=== PATIENT | female | born 1960 | race Caucasian/White ===

== ENCOUNTER 2016-12-28 18:08 | Emergency (ER) | payer OTHER ==
--- NOTE | 2016-12-28 18:25 | PROVIDER DOCUMENTATION ---
HPI-General Adult - General Source: patient - History of Present Illness -Gen Adult Nature of Presenting Problems: 56 Y/O F presents to ED with General Adult c/o .Pt states that she was choking earlier and has a hx of acid reflux. 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 Pt states that it has been constantly hurting for months and states that today it has become an emergency. Location of Pain/Injury: reports: neck Quality of Pain: reports: tightness Severity: reports: moderate Onset/Duration: reports: other (several months ago) Timing: reports: still present Associated Symptoms: reports: cough, EENT symptoms <Johana Jones - Last Filed: 12/28/16 18:37> <Tamiko Rosenberg - Last Filed: 12/28/16 19:37> - General Chief Complaint: General Adult Stated Complaint: "DIFFICULITIES SWALLOWING" Time Seen by Provider: 12/28/16 18:25 Allergies/Adverse Reactions: Patient Allergies Allergy/AdvReac Type Severity Reaction Status Date / Time sulfamethoxazole Allergy Severe ANAPHYLAXIS Verified 01/30/16 15:53 [From Bactrim] trimethoprim [From Bactrim] Allergy Severe ANAPHYLAXIS Verified 01/30/16 15:53 oxybutynin chloride * Allergy blisters Verified 01/30/16 15:53 [From Ditropan] in throat Home Medications: Home Medication List Medication Instructions Recorded Confirmed Last Taken Type Amitriptyline HCl 75 mg PO QPM 07/24/13 01/30/16 01/29/16 19:30 History Hydrocodone/APAP 7.5 mg/325 mg 1 each PO BID PRN 01/23/14 01/30/16 01/30/16 06: 00 History [[place]-7.5] Acetaminophen [Arthritis Pain 650 mg PO QPM 05/21/14 01/30/16 Unknown History Relief] Clonazepam [Klonopin] 0.5 mg PO BID PRN 05/21/14 01/30/16 01/30/16 06:00 History Rizatriptan [Maxalt] 10 mg PO PRN PRN 05/21/14 01/30/16 01/29/16 19:30 History Cephalexin [Keflex] 500 mg PO BID #14 capsule 01/30/16 Unknown Rx Cyclobenzaprine [Flexeril] 10 mg PO TID #20 tablet 01/30/16 Unknown Rx Famotidine [Pepcid] 20 mg PO DAILY #20 tablet 01/30/16 Unknown Rx Ketorolac [Toradol] 10 mg PO Q6H PRN PRN #20 tablet 01/30/16 Unknown Rx Review of Systems - Adult - REVIEW OF SYSTEMS - ADULT Constitutional: denies: chills, fever Ears, Nose, Mouth & Throat: reports: throat pain. denies: ear discharge, hearing loss, tinnitus, sinus problem, loose teeth Respiratory: reports: cough. denies: shortness of breath <Johana Jones - Last Filed: 12/28/16 18:37> Past History - Adult - PAST MEDICAL HISTORY-ADULT Review of Records: reports: Old Records Reviewed, Nursing Assessment Review, Medications Reviewed, Social history reviewed & non-contributory. - SOCIAL HISTORY Smoking: quit greater than 1 year Living Situation: family <Johana Jones - Last Filed: 12/28/16 18:37> - PAST MEDICAL HISTORY-ADULT Major Childhood Illnesses: reports: denies history Cardiovascular: reports: denies history Respiratory: reports: denies history Gastrointestinal: reports: GERD Obstetrical/Gynecological: reports: denies history Genitourinary: reports: denies history Musculoskeletal: reports: denies history Neurological: reports: Seizures/Epilepsy, TIA, other (subarachnoid cyst) Endocrine/Immune: reports: hypoglycemia Other Conditions: reports: denies history - PRIOR SURGERIES/PROCEDURES Surgical/Procedure History: reports: hysterectomy, BTL, other - IMMUNIZATION STATUS Childhood Immunizations: See Nurse Assessment Flu Vaccine: See Nurse Assessment - FAMILY HISTORY Family History: reviewed, not pertinent <Tamiko Rosenberg - Last Filed: 12/28/16 19:37> Physical Exam-General - PHYSICAL EXAM-ADULT Initial Vital Signs Reviewed: Yes - CONSTITUTIONAL General Appearance: appears well, alert, no apparent distress - EYES Eyes: PERRL/EOMI, pink conjunctivae - HEAD, EARS, NOSE, MOUTH & THROAT HENMT: normocephalic/atraumatic, moist mucous membranes, normal ENT inspection. negative: pharyngeal erythema, tonsillar exudate (tonsils surgically removed) - NECK Neck: non-tender, full range of motion, supple. negative: lymphadenopathy - RESPIRATORY Respiratory: chest non-tender, lungs clear, normal breath sounds. negative: crackles, rales, rhonchi, stridor, wheezing - CARDIOVASCULAR Cardiovascular: regular rate, rhythm, no edema - GASTROINTESTINAL (ABDOMEN) Abdominal Exam: normal bowel sounds, non tender, soft - MUSCULOSKELETAL Back Exam: normal inspection, no CVA tenderness, no vertebral tenderness Extremity: non-tender, normal inspection - SKIN Integumentary: normal color, normal turgor, warm/dry - NEUROLOGIC Neurologic: grossly normal, no motor/sensory deficits - PSYCHIATRIC Psych/Mental Status: normal thought content, normal thought process <Tamiko Rosenberg - Last Filed: 12/28/16 19:37> Progress - PLAN OF CARE/RESULTS Progress/Plan/Lab Results: Orders Category Date Time Status CHEST-2 VIEWS [RAD] Stat Exams 12/28/16 18:33 Taken Lido/Smith Alk/Al&mg Hydrox [G.i. Cocktail] Med 12/28/16 18:38 Discontinued 30 ml PO NOW ONE Vital Signs Temp Pulse Resp BP Pulse Ox 12/28/16 18:11 98 F 83 18 131/82 99 sulfamethoxazole [From Bactrim] Allergy (Severe, Verified 01/30/16 15:53) ANAPHYLAXIS trimethoprim [From Bactrim] Allergy (Severe, Verified 01/30/16 15:53) ANAPHYLAXIS oxybutynin chloride * [From Ditropan] Allergy (Verified 01/30/16 15:53) blisters in throat Amitriptyline HCl 75 mg PO QPM 07/24/13 Hydrocodone/APAP 7.5 mg/325 mg [[place]-7.5] 1 each PO BID PRN 01/23/14 Acetaminophen [Arthritis Pain Relief] 650 mg PO QPM 05/21/14 Clonazepam [Klonopin] 0.5 mg PO BID PRN 05/21/14 Rizatriptan [Maxalt] 10 mg PO PRN PRN 05/21/14 Cephalexin [Keflex] 500 mg PO BID #14 capsule 01/30/16 Cyclobenzaprine [Flexeril] 10 mg PO TID #20 tablet 01/30/16 Famotidine [Pepcid] 20 mg PO DAILY #20 tablet 01/30/16 Ketorolac [Toradol] 10 mg PO Q6H PRN PRN #20 tablet 01/30/16 - XRAY 1 XRAY Study: Chest Impression: Normal XRAY Interpretation: nad <Tamiko Rosenebrg - Last Filed: 12/28/16 19:37> Departure <Johana Jones - Last Filed: 12/28/16 18:37> - Departure Time of Disposition Order: 19:29 Certified Medical Emergency: Emergent <Tamiko Rosenberg - Last Filed: 12/28/16 19:37> - Departure DIAGNOSIS: Esophageal dysfunction Disposition: HOME 01 Condition: Good Additional Instructions: Follow up with Dr. Banks as needed for possible esophagus stretching. Follow up with Dr. Alvarenga as needed for formal review of labs. ED Follow Up Instructions: You have been treated by a care provider in the Emergency Department. These instructions are being provided to you so you can have an understanding of how to care for yourself upon discharge. Upon discharge from the Emergency Department, you are responsible for making arrangements for follow-up care by a physician of your choice. Take all prescribed medications as directed. Return to the Emergency Department immediately for any new or worsening symptoms. You may call the Physician Referral phone number at [phone] to obtain a list of Physicians who are taking new patients. Referrals: Brando Alvarenga [Primary Care Provider] - Attestation - Physician/ BENJY Attestation Patient care was provided by Advanced Practice Provider:: Yes Advanced Practice Provider:: Tamiko Rosenberg Advanced Practice Provider documentation review:: The Mid-level provider documentation, treatment plan and medical decision making was reviewed by the physician who agrees with all treatment and medical decision making by the MLP. <Tamiko Rosenberg - Last Filed: 12/28/16 19:37> Physician Attestation
[2016-12-28] MEDS ORDERED: G.I. COCKTAIL PO ONE (18:38)
[2016-12-28 19:46] VITALS: BP 107/76
--- NOTE | 2016-12-29 06:15 | Diag Imaging Result Document ---
PROCEDURE NAME: CHEST-2 VIEWS - 12/28/2016 FRONTAL AND LATERAL CHEST, TWO VIEWS: COMPARISON: Compared to 01/23/2014. FINDINGS: The lungs are hyperexpanded. The heart is not enlarged. Pulmonary vessels are small. Minimal atelectasis in the lung bases. No infiltrates. No pleural effusions. No free air beneath the diaphragm. IMPRESSION: 1. Basilar atelectasis. 2. The patient may have mild emphysema.
== END 2016-12-28 19:45 | disposition home or self-care (01) ==
LOC: P.ED 18:08
DX: K22.8 Other specified diseases of esophagus (principal); R07.0 Pain in throat; R05 Cough; K21.9 Gastro-esophageal reflux disease without esophagitis; Z86.73 Personal history of transient ischemic attack (TIA), and cerebral infarction without residual deficits; Z79.899 Other long term (current) drug therapy
CPT/HCPCS: 71020

== ENCOUNTER 2017-04-14 12:53 | Inpatient (IN) ==
[2017-04-14] MEDS ORDERED: MORPHINE IV ONE (13:24)
[2017-04-14] MEDS ORDERED: NS 1,000 ML IV ONE (13:24)
[2017-04-14 13:44] LABS: MANUAL DIFF NEEDED? NO
[2017-04-14 13:46] LABS: BASO% 0.4 % (0.0-0.8); EOS# 0.14 X1000 (0.0-0.7); EOS% 1.2 % (0.0-10.0); HEMATOCRIT 37.5 % (37.0-47.0); IMM GRAN# 0.02 X1000 (0.0-0.04); IMM GRAN% 0.2 % (0.0-0.5); LYMPH# 2.19 X1000 (1.2-3.4); LYMPH% 19.2 % (20.5-51.1); MCH 30.2 PG (27-31); MCHC 34.7 g/dL (33-37); MCV 87.2 FL (81-99); MONO# 1.08 X1000 (0.11-0.59); MONO% 9.5 % (1.7-9.3); NEUT% 69.5 % (42.2-75.2); PLT 253 X1000 (130-400)
[2017-04-14 14:06] LABS: BILIRUBIN URINE NEGATIVE (NEGATIVE); BLOOD URINE 1+ (NEGATIVE); CLARITY CLEAR (CLEAR); COLOR YELLOW; GLUCOSE URINE NEGATIVE (NEGATIVE); LEUKOCYTES URINE 2+ (NEGATIVE); NITRITE URINE NEGATIVE (NEGATIVE); PROTEIN URINE 1+(30 mg/dL) mg/dL (NEGATIVE); SP GRAVITY URINE 1.025; UROBILINOGEN URINE NORMAL
[2017-04-14 14:07] LABS: AGAP 17; ALBUMIN 4.4 g/dL (3.5-5.0); ALKALINE PHOSPHATASE 72 U/L (32-104); AMYLASE 30 U/L (20-200); BUN 17 mg/dL (8-22); CALCIUM 9.7 mg/dL (8.8-10.2); CHLORIDE 99 mmol/L (98-107); COSMO 275; GOT 34 U/L (10-30); GPT 37 U/L (10-36); LIPASE 18 U/L (13-60); POTASSIUM 3.3 mmol/L (3.5-5.1); SODIUM 137 mmol/L (136-145); TCO2 22 mmol/L (25-35); TOTAL PROTEIN 7.8 g/dL (6.3-8.3)
[2017-04-14 14:07] LABS: UR AMPHETAMINES QUAL NONE DETECTED (NONE DETECT); UR BARBITUATES QUAL NONE DETECTED (NONE DETECT); UR BENZODIAZEPIN QUAL NONE DETECTED (NONE DETECT); UR CANNABINOIDS QUAL NONE DETECTED (NONE DETECT); UR COCAINE QUAL NONE DETECTED (NONE DETECT); UR MDMA QUAL NONE DETECTED (NONE DETECT); UR METHADONE QUAL NONE DETECTED (NONE DETECT); UR METHAMPHETAMINE QUAL NONE DETECTED (NONE DETECT); UR OPIATES QUAL NONE DETECTED (NONE DETECT); UR OXYCODONE QUAL NONE DETECTED (NONE DETECT); UR PCP QUAL NONE DETECTED (NONE DETECT); UR TCA QUAL PRESUMPTIVE POSITIVE (NONE DETECT)
[2017-04-14 14:13] LABS: URINE CULTURE PL NEEDED? YES; URINE EPITHELIAL CELLS >10 /HPF (<10); URINE RBC <10 /HPF (<10)
[2017-04-14 14:14] LABS: URINE CRYSTAL NONE SEEN /HPF; URINE SOURCE CLEAN CATCH
[2017-04-14 14:15] LABS: URINE CAST GRANULAR PRESENT /LPF
[2017-04-14] MEDS ORDERED: ROCEPHIN 1 GM/NS 1 GM/50 ML IVPB IV ONE (14:17)
--- NOTE | 2017-04-14 14:20 | Diag Imaging Result Doc PS360 ---
EXAM: CHEST-2 VIEWS HISTORY: Fall with back pain TECHNIQUE: COMPARISON: 12/28/2016 FINDINGS: The lungs are hyper expanded. The heart is not enlarged. The vessels are not distended. There are no infiltrates. No pleural effusions. Minimal scarring in the left base. No contusion. No pneumothorax. No compressed thoracic vertebra. IMPRESSION: No acute injury. Electronically signed by Riaz Reardon 04/14/2017 2:18 PM
--- NOTE | 2017-04-14 14:21 | Diag Imaging Result Doc PS360 ---
HEAD/C-SPINE W/O CONTRAST - 04/14/2017 INDICATION: Fall injury TECHNIQUE: A CT dose reduction protocol was used. COMPARISON: 10/02/2013, 01/31/2016 FINDINGS: Head CT: The ventricles and sulci are normal in size and contour. No intracranial mass or hemorrhage. The skull is intact. The sinuses, mastoids, and middle ears are clear. Cervical spine: Alignment is anatomic. Vertebral body heights are preserved. There is moderately advanced, multilevel disc degeneration with narrowing and osteophytes. This affects all the disc spaces from C4-C7. No fracture or subluxation. Facet joints are fairly well preserved. No central canal or neural foraminal stenosis. The degree of disc degeneration appears identical to the prior exam. IMPRESSION: 1. No acute injury to the head. 2. Multilevel degenerative disc disease in the cervical spine, but no acute injury. Electronically signed by Saroj Arguello 04/14/2017 2:19 PM
--- NOTE | 2017-04-14 14:26 | Diag Imaging Result Doc PS360 ---
RENAL STONE SEARCH - 04/14/2017 INDICATION: Fall with back pain and L flank pain TECHNIQUE: A CT dose reduction protocol was used. COMPARISON: None FINDINGS: There is severe diffuse inflammation about the pancreas. No fluid collections. No free air. No bowel obstruction or inflammation. There is a rather large right renal cyst measuring 5.2 cm. No radiodense renal stones. No hydronephrosis or hydroureter. There are moderate degenerative changes of the spine. No acute or suspicious bony lesion. Urinary bladder and rectum are normal. IMPRESSION: 1. Significant acute pancreatitis. 2. No internal injuries or fractures. Electronically signed by Saroj Arguello 04/14/2017 2:24 PM
[2017-04-14] MEDS ORDERED: TYLENOL PO ONE (14:52)
--- NOTE | 2017-04-14 15:39 | PROVIDER DOCUMENTATION ---
This chart was entered by Mary Olivarez Scribe, acting as scribe for Christine Chadwick MD. HPI-Musculoskeletal Pain/Inj - GENERAL Chief Complaint: Fall Stated Complaint: FALL-3 WKS AGO/FEVER/BODYACHES Time Seen by Provider: 04/14/17 13:07 Source: patient - HX OF PRESENT ILLNESS-MUSKULOSKELTAL Nature of Presenting Problem: Pt is 56 y/o F presents to the ED with back, neck, and bilateral hip pain. Pt states fell down 9 stairs 3 wks ago. Pt states chronic back pain. Pt denies incont of bladder and bowel. Pt states hx of slipped disc in back. Pt states 18 yrs of pain med use. Pt states has not taken some pain meds in 3 wk. Pt states recently having to use a cane for ambulation. Quality of Pain: reports: aching Severity in ED: moderate Onset/Duration: other (3 wks) Timing: still present, getting worse Modifying Factors: improves with: nothing Any recent injury?: Yes (fell 3 wks ago ) Locality of Occurance: Home Similar Symptoms Previously?: Yes Recently seen or treated by another doctor?: No - FALL INJURY Location of Pain/Injury: reports: neck, back (T spine and lumbar), other ( bilateral hips) Pain Radiation: reports: no radiation Reason for Fall: reports: unknown Symptoms prior to fall:: reports: none Loss of Consciousness: no loss of consciousness Injury Associated Symptoms: reports: back/neck pain (back and neck), other ( bilateral hip pain). denies: arm pain, chest pain, diaphoresis, dizziness, headaches, joint pain, muscle aches, nausea, puncture wound, shortness of breath , sensory/motor loss, snap/crack/pop sensation, pain with inspiration, unable to bear weight, vomiting, weakness, trouble walking - BACK & NECK PAIN/INJURY Back/Neck Pain Location: reports: T-spine, lumbar spine Back/Neck Pain Radiation: denies: headache, shoulders, arm(s), Buttocks, Upper Legs, Lower Legs, Feet Context / Method of Injury: reports: fall Associated Symptoms: reports: lower back pain, weakness in legs/feet (bilateral) . denies: loss of bladder control, loss of bowel control, fever, muscle spasms , numbness in legs/feet, numbness in upper ext, sensory/motor loss, tingling in legs/feet, tingling in upper ext, weakness in upper ext History of Chronic Neck or Back Pain?: Yes - HIP/PELVIS PAIN/INJURY Hip Pain Location: reports: hip (R), hip (L) Pain Radiation: reports: no radiation Context / Method of Injury: reports: fall Associated Symptoms: reports: lower back pain, weakness in legs/feet (bilateral) . denies: loss of bladder control, loss of bowel control, muscle spasms, numbness in legs/feet, sensory/motor loss, tingling in legs/feet - LOWER EXTREMITY PAIN/INJURY Lower Extremities Pain: hip: bilateral Context / Method of Injury: reports: fell Associated Symptoms: reports: lower back pain, weakness in legs/feet (bilateral legs). denies: loss of bladder control, loss of bowel control, muscle spasms, numbness in legs/feet, sensory/motor loss, tingling in legs/feet Review of Systems - Adult - REVIEW OF SYSTEMS - ADULT Constitutional: reports: no symptoms reported Eyes: reports: no symptoms reported Ears, Nose, Mouth & Throat: reports: no symptoms reported Cardiovascular: reports: no symptoms reported Respiratory: reports: no symptoms reported Gastrointestinal: reports: no symptoms reported Genitourinary: reports: hematuria. denies: dysuria, urinary retention Musculoskeletal: reports: back pain, neck pain, other (bilateral hip pain) Integumentary: reports: no symptoms reported Neurological: reports: no symptoms reported Psychiatric: reports: no symptoms reported Endocrine: reports: no symptoms reported Hematologic/Lymphatic: reports: no symptoms reported Allergic/Immunologic: reports: no symptoms reported All Other Systems: Reviewed and Negative Past History - Adult - PAST MEDICAL HISTORY-ADULT Review of Records: reports: Nursing Assessment Review, Medications Reviewed, Social history reviewed & non-contributory. Major Childhood Illnesses: reports: denies history Cardiovascular: reports: denies history Respiratory: reports: sleep apnea Gastrointestinal: reports: GERD Obstetrical/Gynecological: reports: denies history Genitourinary: reports: denies history Musculoskeletal: reports: denies history Neurological: reports: Seizures/Epilepsy, TIA, other (subarachnoid cyst) Endocrine/Immune: reports: Diabetes, hypoglycemia Other Conditions: reports: denies history - PRIOR SURGERIES/PROCEDURES Surgical/Procedure History: reports: hysterectomy, BTL, hernia repair, other - IMMUNIZATION STATUS Childhood Immunizations: See Nurse Assessment Flu Vaccine: See Nurse Assessment - FAMILY HISTORY Family History: reviewed, not pertinent - SOCIAL HISTORY Smoking: cigarettes, greater than 1 pack/day Provider spent 3-5 mins advising pt. on dangers of tobacco.: Discussed manners to quit use, and f/u contacts for add'l counseling. Substance Use: denies Living Situation: family Physical Exam-Injury Related - Physical Exam-Injury Related Initial Vital Signs Reviewed: Yes General Appearance: alert, no apparent distress Eyes: PERRL/EOMI, pink conjunctivae Head, Ears, Nose, Mouth & Throat: normocephalic/atraumatic, moist mucous membranes, normal ENT inspection Neck: non-tender, full range of motion, supple, normal inspection Respiratory: chest non-tender, lungs clear, normal breath sounds Cardiovascular: normal peripheral pulses, regular rate, rhythm Abdominal Exam: normal bowel sounds, non tender, soft Lymphatic: no adenopathy Back Exam: CVA tenderness, vertebral tenderness Extremity: normal range of motion, non-tender, normal inspection Integumentary: normal color, warm/dry Neurologic: grossly normal Psych/Mental Status: normal mood/affect, oriented x 3 Progress - PLAN OF CARE/RESULTS Progress/Plan/Lab Results: Vital Signs - 8 hr 04/14/17 13:05 Temperature 98.5 F Pulse Rate 97 H Respiratory Rate 18 Blood Pressure 122/76 O2 Sat by Pulse Oximetry 99 Laboratory Results - last 24 hr 04/14/17 04/14/17 04/14/17 13:25 13:25 13:40 WBC RBC Hgb Hct MCV MCH MCHC RDW Std Deviation Plt Count MPV Immature Gran % (Auto) Neut % (Auto) Lymph % (Auto) Carbon % (Auto) Eos % (Auto) Baso % (Auto) Immature Gran # (Auto) Neut # (Auto) Lymph # (Auto) Carbon # (Auto) Eos # (Auto) Baso # (Auto) Sodium 137 Potassium 3.3 L Chloride 99 Carbon Dioxide 22 L Anion Gap 17 BUN 17 Creatinine 0.9 Estimated GFR/1.73 m2 > 60 BUN/Creatinine Ratio 19 Glucose 99 Calculated Osmolality 275 Calcium 9.7 Total Bilirubin 0.40 AST 34 H ALT 37 H Alkaline Phosphatase 72 Total Protein 7.8 Albumin 4.4 Globulin 3.0 Albumin/Globulin Ratio 1.0 Amylase 30 Lipase 18 Urine Source CLEAN CATCH Urine Color YELLOW Urine Clarity CLEAR Urine pH 5.0 Ur Specific [place] 1.025 Urine Protein 1+(30 mg/dL) A Urine Ketones TRACE Urine Blood 1+ A Urine Nitrite NEGATIVE Urine Bilirubin NEGATIVE Urine Urobilinogen NORMAL Urine Microscopic RBC <10 Urine WBC 2+ A Urine Microscopic WBC 10-20 A Ur Epithelial Cells >10 A Urine Crystals NONE SEEN Urine Bacteria 2+ Urine Casts GRANULAR PRESENT Urine Yeast NONE SEEN Urine Glucose NEGATIVE Urine Opiates Screen NONE DETECTED Ur Oxycodone Screen NONE DETECTED Urine Methadone Screen NONE DETECTED Ur Barbituates Screen NONE DETECTED Ur Tricyclics Screen PRESUMPTIVE POSITIVE A Ur Phencyclidine Scrn NONE DETECTED Ur Amphetamines Screen NONE DETECTED U Methamphetamines Scrn NONE DETECTED Urine MDMA Screen NONE DETECTED U Benzodiazepines Scrn NONE DETECTED Urine Cocaine Screen NONE DETECTED U Cannabinoids Screen NONE DETECTED 04/14/17 13:40 WBC 11.42 H RBC 4.30 Hgb 13.0 Hct 37.5 MCV 87.2 MCH 30.2 MCHC 34.7 RDW Std Deviation 13.2 Plt Count 253 MPV 12.0 H Immature Gran % (Auto) 0.2 Neut % (Auto) 69.5 Lymph % (Auto) 19.2 L Carbon % (Auto) 9.5 H Eos % (Auto) 1.2 Baso % (Auto) 0.4 Immature Gran # (Auto) 0.02 Neut # (Auto) 7.94 H Lymph # (Auto) 2.19 Carbon # (Auto) 1.08 H Eos # (Auto) 0.14 Baso # (Auto) 0.05 Sodium Potassium Chloride Carbon Dioxide Anion Gap BUN Creatinine Estimated GFR/1.73 m2 BUN/Creatinine Ratio Glucose Calculated Osmolality Calcium Total Bilirubin AST ALT Alkaline Phosphatase Total Protein Albumin Globulin Albumin/Globulin Ratio Amylase Lipase Urine Source Urine Color Urine Clarity Urine pH Ur Specific [place] Urine Protein Urine Ketones Urine Blood Urine Nitrite Urine Bilirubin Urine Urobilinogen Urine Microscopic RBC Urine WBC Urine Microscopic WBC Ur Epithelial Cells Urine Crystals Urine Bacteria Urine Casts Urine Yeast Urine Glucose Urine Opiates Screen Ur Oxycodone Screen Urine Methadone Screen Ur Barbituates Screen Ur Tricyclics Screen Ur Phencyclidine Scrn Ur Amphetamines Screen U Methamphetamines Scrn Urine MDMA Screen U Benzodiazepines Scrn Urine Cocaine Screen U Cannabinoids Screen Orders Category Date Time Status Saline Loc DIRECTED Care 04/14/17 13:25 Active NPO Diet 04/14/17 13:25 Active CHEST-2 VIEWS [RAD] Stat Exams 04/14/17 13:29 Completed HEAD/C-SPINE W/O CONTRAST [CT] Stat Exams 04/14/17 13:24 Completed RENAL STONE SEARCH [CT] Stat Exams 04/14/17 13:24 Completed US GB < RUQ (LIMITED) [US] Stat Exams 04/14/17 15:00 Ordered AMYLASE [CHEM] Stat Lab 04/14/17 13:40 Completed CBC WITH ELECTRONIC DIFF [HEME] Stat Lab 04/14/17 13:40 Completed COMPREHENSIVE METABOLIC PANEL [CHEM] Stat Lab 04/14/17 13:40 Completed LIPASE [CHEM] Stat Lab 04/14/17 13:40 Completed UDS [URINE DRUG SCREEN PL] Stat Lab 04/14/17 13:[address] W/POSS RFLX CULT [URINALYSIS] Stat Lab 04/14/17 13:25 Completed URINE CULTURE [RM] Routine Lab 04/14/17 14:15 Ordered 0.9% Sodium Chloride Inj [Ns] 1,000 ml Med 04/14/17 13:24 Discontinued IV 999 mls/hr Acetaminophen [Tylenol] Med 04/14/17 14:52 Discontinued 1,000 mg PO NOW ONE CefTRIAXONE 1 GM/NS [Rocephin 1 gm/Ns] Med 04/14/17 14:17 Discontinued 1 gm in 50 ml IV NOW Morphine Med 04/14/17 13:24 Discontinued 4 mg IV NOW ONE Result Diagrams: 04/14/17 13:40 04/14/17 13:40 - XRAY 1 XRAY Study: Chest Impression: Normal XRAY Interpretation: no acute injury. - CT/MRI 2 CT Study: Head Impression: Abnormal (multilevel degenerative disc disease in the cervical spine , but no acute injury.) CT Results: no acute injury to head. 1 CT Study: Renal Stone Impression: Abnormal CT Results: significant acute pancreatitis. no internal injuries or fractures. - CONSULTS/PCP/HOSPITALIST Notification #1 *Consult/PCP/Hospitalist*: Dr. Carrero Time Discussed: 15:34 Reason/Comments: Dr. Chadwick consulted with Dr. Carrero about Pt Consult Disposition: Admit Departure - Departure Date of Disposition Decision: 04/14/17 Time of Disposition Decision: 15:37 DIAGNOSIS: Pancreatitis Disposition: ADMITTED INPATIENT 09 Certified Medical Emergency: Emergent Condition: Stable Referrals and Follow-Ups: Brando Alvarenga [Primary Care Provider] - - Critical Care Note This patient required my direct & personal management of CC.: No This chart was documented by the indicated scribe, (Mary Olivarez Scribe) and accurately reflects the services I performed and decisions made by me, Christine Chadwick MD, as attested by the provider's signature.
--- NOTE | 2017-04-14 16:00 | Diag Imaging Result Doc PS360 ---
US GB < RUQ (LIMITED) - 04/14/2017 INDICATION: Abnormal CT findings TECHNIQUE: Roberts scale, color Doppler, and duplex evaluation of the abdomen was performed. COMPARISON: None FINDINGS: The liver appears hyperechoic suggesting diffuse fatty liver infiltration. No focal masses are appreciated. There is hepatomegaly with a hepatic measurement of 22 cm. The IVC and aorta appear normal. The pancreas is echogenic. The gallbladder is free of stones and sludge has a normal caliber wall. The common bile duct measures 5 mm. The portal vein is patent with hepatopetal flow. The right kidney contains a 5.7 cm simple cyst. There is no hydronephrosis. IMPRESSION: Hepatomegaly with hepatic steatosis. No cholelithiasis. Simple cyst right kidney. Electronically signed by Leora Pena 04/14/2017 3:57 PM
[2017-04-14] MEDS ORDERED: ZOFRAN IV PRN (17:05)
[2017-04-14] MEDS ORDERED: SODIUM CHLORIDE 0.9% INJ SCH (17:15)
[2017-04-14] MEDS ORDERED: ROCEPHIN 1 GM/NS 1 GM/50 ML IVPB IV SCH (18:15)
--- NOTE | 2017-04-14 18:16 | HISTORY AND PHYSICAL ---
PRIMARY CARE PHYSICIAN: Clinic. CHIEF COMPLAINT: Abdominal pain, back pain. HISTORY OF PRESENT ILLNESS: This is a 56-year-old, female with a history of chronic back and abdominal pain formerly on chronic narcotics although she has been off of them the last month. She presented to the emergency room complaining of back pain, bilateral hip pain and intermittent abdominal pain. She states that movement exacerbates the pain and nothing has relieved it since she has been out of her pain medications which this has been 2 -3 weeks. She denied any nausea vomiting, she has had diarrhea over the last few days. She denied any fever or chills. She is noted to have a white count of 11 with amylase of 30 and lipase of 18. CT stone search revealed significant acute pancreatitis. In the emergency room she was given Rocephin, morphine and IV fluids and she is being admitted for further evaluation and treatment. PAST MEDICAL HISTORY: Cervical cancer. Hypoglycemia. Gastroesophageal reflux disease. TIAs. Fibromyalgia. Interstitial cystitis. PAST SURGICAL HISTORY: Hysterectomy. Hernia repair. Tubal ligation. SOCIAL HISTORY: She denies alcohol, tobacco, or illicit drug use. ALLERGIES: Bactrim which causes anaphylaxis and Ditropan which causes blisters in her throat. HOME MEDICATIONS: A list will be obtained. REVIEW OF SYSTEMS: A 14 point review of systems is discussed with patient with pertinent positives being abdominal pain, chronic back pain, chronic hip pain, chronic left leg pain. Diarrhea. Chronic weakness in the bilateral lower extremities. She denied chest pain, palpitations, shortness of breath, cough, fever, chills, nausea, vomiting, constipation black or bloody vomitus, hematuria, dysuria, frequency, urgency. PHYSICAL EXAMINATION: GENERAL: This is a 56-year-old, female, who is lying in the bed, in no distress. VITAL SIGNS: Blood pressure is 122/71, heart rate 79, respirations are 18, temperature is 97.3 degrees with room air saturations of 98-100%. HEENT: Head is normocephalic, atraumatic. Pupils are equal, round, react to light. EOMs are intact. Sclerae are anicteric. Mucous membranes are moist. NECK: Supple with trachea midline. CARDIOVASCULAR: Regular rate and rhythm. S1 and S2 appreciated. PULMONARY: Breath sounds are clear with no increased work of breathing noted. GASTROINTESTINAL: Soft, nontender, nondistended with bowel sounds in all 4 quadrants. She is nontender to palpation. MUSCULOSKELETAL: Good range of motion of joints. EXTREMITIES: No clubbing, cyanosis, or edema. Calves are nontender and pulses are palpable x4. SKIN: Warm and dry. NEURO: She is alert and oriented x3. DIAGNOSTICS: CT renal search revealed significant acute pancreatitis with a 5.2 cm renal cyst to the right with no hydronephrosis and no hydroureter and no radiodense stones. Abdominal ultrasound revealed hepatomegaly with hepatic steatosis. No cholelithiasis. Gallbladder is free of stones and sludge and has a normal caliber wall. Pancreas is echogenic. Portal vein is patent with hepatopetal flow. The right kidney contains a 5.[address] of the head and C- spine revealed no acute injury to the head, multilevel degenerative disk disease in the cervical spine but no acute injury. LAB: WBC is 11.42. Potassium is 3.3, AST 34, ALT 37 with amylase of 30, lipase of 18. ASSESSMENT AND PLAN: 1. Pancreatitis, likely chronic given changes on CT scan with normal Amylase and Lipase 2. Hypokalemia. 3. Leukocytosis. 4. Chronic back pain, chronic hip pain bilateral. 5. Gastroesophageal reflux disease. 6. DVT prophylaxis. 7. GI prophylaxis. She is admitted to the hospital. Placed on telemetry. She will remain NPO. We will trend labs in the morning. We will give IV hydration, IV Protonix with pain and antiemetic control. The patient states that she has been out of her Klonopin and her [place] for 4 weeks now as her doctor has moved and she no longer has a pain Clinic to go to therefore we will not have to worry about withdrawal at this time. For DVT prophylaxis we will use SCDs as she stated that she has had black stools in the last week and for GI prophylaxis Protonix. Further treatments pending hospital course. Dictated by TANVI Thomas for Osmany Carrero MD cc: TANVI Thomas MD [facility]
[2017-04-14] MEDS: PROTONIX IV SCH (20:22)
[2017-04-14] MEDS: MORPHINE IV PRN (20:26)
[2017-04-15] MEDS: MORPHINE IV PRN ×3 (00:55→10:50)
[2017-04-15 06:24] LABS: HEMATOCRIT 35.1 % (37.0-47.0); HEMOGLOBIN 11.8 g/dL (12.0-16.0); MCH 29.4 PG (27-31); MCHC 33.6 g/dL (33-37); MCV 87.3 FL (81-99); MPV 11.8 FL (7.4-10.4); RBC 4.02 XMIL (4.2-5.4)
[2017-04-15 06:47] LABS: AMYLASE 49 U/L (20-200); LIPASE 50 U/L (13-60)
[2017-04-15 06:52] LABS: AGAP 15; ALBUMIN 3.5 g/dL (3.5-5.0); ALKALINE PHOSPHATASE 61 U/L (32-104); BUN 11 mg/dL (8-22); CALCIUM 8.6 mg/dL (8.8-10.2); CHLORIDE 103 mmol/L (98-107); COSMO 275; GOT 18 U/L (10-30); GPT 21 U/L (10-36); POTASSIUM 3.3 mmol/L (3.5-5.1); SODIUM 138 mmol/L (136-145); TCO2 20 mmol/L (25-35); TOTAL PROTEIN 6.5 g/dL (6.3-8.3)
--- NOTE | 2017-04-15 08:46 | PROGRESS NOTE ---
DATE: 04/15/2017 SUBJECTIVE: The patient complains of still having abdominal pain, still nauseated, not feeling well. Denies any chest pains or palpitations. Denies any GI or issues. OBJECTIVE: Vital signs reviewed. Temperature 99 degrees, pulse 73, respiratory 20, BP 116/61, saturating 96% on room air. General: Patient is awake, alert. She is currently in no real respiratory distress. Abdomen is soft, diffusely mildly tender. Extremities: Moves all extremities. Neurologic: No changes. Labs reviewed. CBC, CMP essentially normal with a potassium at 3.3. Amylase, lipase also normal. ASSESSMENT: 1. Pancreatitis likely chronic as her amylase and lipases are normal, but her CT shows inflammation. 2. Hypokalemia. We will replace. 3. Leukocytosis, resolved. 4. Chronic back pain. PLAN: We will advance diet to clear liquids. We will restart her home medications. When doses are available, we will start Creon for pancreatitis and will follow. cc: Osmany Carrero MD
[2017-04-15] MEDS ORDERED: KLONOPIN PO PRN (10:24)
[2017-04-15] MEDS: PHENERGAN IV PRN ×2 (10:50→15:57)
[2017-04-15] MEDS: SODIUM CHLORIDE 0.9% INJ PRN ×2 (10:50→15:57)
[2017-04-15] MEDS ORDERED: CLINDAMYCIN 600 MG/NS 600 MG/50 ML IVPB IV ONE (12:43)
[2017-04-15] MEDS ORDERED: KLONOPIN PO ONE (13:37)
[2017-04-15] MEDS: CREON PO SCH ×2 (13:52→17:50)
[2017-04-15] MEDS: MAXALT PO PRN (13:52)
[2017-04-15] MEDS: CLINDAMYCIN 600 MG in NS 50 ML IV SCH ×3 (13:53→18:24)
[2017-04-15] MEDS: NORCO-10 PO PRN ×2 (15:58→20:42)
[2017-04-15] MEDS: PROTONIX IV SCH (20:35)
[2017-04-15] MEDS ORDERED: ELAVIL PO SCH ×2 (21:00)
[2017-04-16] MEDS: CLINDAMYCIN 600 MG in NS 50 ML IV SCH ×3 (01:24→12:24)
[2017-04-16] MEDS: MAXALT PO PRN (01:25)
[2017-04-16] MEDS: NORCO-10 PO PRN ×2 (01:25→12:32)
[2017-04-16] MEDS: PHENERGAN IV PRN (06:10)
[2017-04-16] MEDS ORDERED: MAXALT MLT PO PRN (06:37)
[2017-04-16] MEDS: CREON PO SCH ×3 (07:52→16:09)
[2017-04-16] MEDS ORDERED: CELEXA PO SCH (09:00)
[2017-04-16 14:55] VITALS: BP 101/64
[2017-04-17] MEDS ORDERED: CELEXA PO SCH (09:00)
--- NOTE | 2017-04-17 16:13 | DISCHARGE SUMMARY ---
ADMISSION DATE: 04/14/2017 DISCHARGE DATE: 04/16/2017 DIAGNOSES: 1. Pancreatitis likely chronic as amylase and lipases are normal but CT shows inflammation. 2. Hypokalemia resolved. 3. Leukocytosis resolved. 4. Chronic back pain on chronic narcotics. DIAGNOSTIC: 1. 04/14/2017 CT of the head and C-spine revealed no acute injury to the head, multilevel degenerative disk disease in the cervical spine but no acute injury. 2. 04/14/[address] with significant acute pancreatitis. 3. Chest x-ray revealed lungs are hyperexpanded. Heart is not enlarged. Vessels are not distended. There are no infiltrates and no pleural effusions. No contusion. No pneumothorax. No compressed thoracic vertebrae. 4. Abdominal ultrasound revealed hepatomegaly with hepatic steatosis. No cholelithiasis. Simple cysts in the right kidney. HOSPITAL COURSE: Ms. Rodriguez presented to the hospital complaining of right upper quadrant pain that she stated went straight through to her back as well as her chronic back pain. CT stone search revealed acute pancreatitis although amylase and lipase were normal and right upper quadrant ultrasound was normal. She was NPO and then slowly advanced to a GI soft diet which she did tolerate well for breakfast and lunch. She did have a white blood cell count of 11.4. It was down to 7.8. We did check electrolytes and replete as was appropriate. Urine culture was obtained and had no pathogenic growth. Thankfully she has improved and is ready to be discharged. PHYSICAL EXAMINATION: Vital Signs: Blood pressure is 101/64 with a heart rate of 76, respirations 18, temperature 98.5 degrees oral with room air saturations of 99%. Cardiovascular: Regular rate and rhythm. S1, S2 appreciated. Pulmonary: Breath sounds are clear with no increased work of breathing noted. Gastrointestinal: Abdomen is soft with epigastric tenderness. Nondistended with bowel sounds in all 4 quadrants. Extremities: No clubbing, cyanosis, or edema. Calves are nontender. Pulses are palpable x4. Neurologic: She is alert and oriented x3. DISCHARGE MEDICATIONS: [place] 10/325 1 b.i.d. p.r.n. Celexa 20 mg p.o. q.a.m. Zofran 8 mg p.o. daily p.r.n. Amitriptyline 100 mg at bedtime. Klonopin 0.5 p.o. b.i.d. Maxalt 10 mg p.o. p.r.n. and Creon. She was given a prescription for Creon. She was given no other prescriptions. She has been instructed to go to her followup with Dr. Alvarenga at her pain clinic or with her primary care provider for any refills. She is being discharged home in stable condition with family members. TIME SPENT: This is a greater than 30 minute discharge from 0545 to 0620. Dictated by TANVI Thomas for Osmany Carrero MD cc: TANVI Thomas MD
== END 2017-04-16 16:30 | disposition home or self-care (01) ==
LOC: P.ED 12:53 → P.MEDSURG 15:44
PROVIDERS: ATTEND Family Medicine